=== PATIENT | male | born 1995 | race American Indian/Alaskan Native ===

== ENCOUNTER 2023-08-02 16:34 | Emergency (ER) | payer OTHER ==
[~2023-08-02] VITALS: Ht 172.7 cm; Wt 106.7 kg
[2023-08-02] MEDS ORDERED: KETOROLAC TROMETHAMINE 60 MG/2 ML VIAL IM ONE (17:00)
[2023-08-02] MEDS ORDERED: METHYLPREDNISOLO4 M1 PO (17:44)
[2023-08-02] MEDS ORDERED: CYCLOBENZAPRINE10 MG PO (17:44)
[2023-08-02 18:12] VITALS: BP 125/71
== END 2023-08-02 18:09 | disposition home or self-care (01) ==
LOC: ED 16:34
DX: S39.012A Strain of muscle, fascia and tendon of lower back, initial encounter (principal); V43.52XA Car driver injured in collision with other type car in traffic accident, initial encounter; Y92.410 Unspecified street and highway as the place of occurrence of the external cause
CPT/HCPCS: 72100; 96372; 99283-25; J1885